=== PATIENT | female | born 1945 | race Caucasian/White ===

== ENCOUNTER 2022-12-12 10:09 | Emergency (ER) | payer MEDICARE, MEDICAID ==
[~2022-12-12] VITALS: Ht 160 cm; Wt 59.1 kg
== END 2022-12-12 11:36 | disposition home or self-care (01) ==
LOC: ER 10:10
DX: S52.592A Other fractures of lower end of left radius, initial encounter for closed fracture (principal); E03.9 Hypothyroidism, unspecified; F32.A Depression, unspecified; W18.39XA Other fall on same level, initial encounter; Y93.E1 Activity, personal bathing and showering; Y92.091 Bathroom in other non-institutional residence as the place of occurrence of the external cause; Y99.8 Other external cause status
CPT/HCPCS: 29125; 73110; 99284; A4565; A6449

== ENCOUNTER 2022-12-13 10:36 | Emergency (ER) | payer MEDICARE, MEDICAID ==
[~2022-12-13] VITALS: Ht 160 cm; Wt 56.0 kg
[2022-12-13 10:56] VITALS: BP 127/77
== END 2022-12-13 11:53 | disposition home or self-care (01) ==
LOC: ER 10:36
DX: S52.592A Other fractures of lower end of left radius, initial encounter for closed fracture (principal); E03.9 Hypothyroidism, unspecified; F32.9 Major depressive disorder, single episode, unspecified; Z79.899 Other long term (current) drug therapy; X58.XXXA Exposure to other specified factors, initial encounter; Y93.89 Activity, other specified; Y92.89 Other specified places as the place of occurrence of the external cause; Y99.8 Other external cause status
CPT/HCPCS: 99283

== ENCOUNTER 2024-10-05 10:05 | Emergency (ER) | payer MEDICARE, MEDICAID ==
[~2024-10-05] VITALS: Ht 160 cm; Wt 52.0 kg
[2024-10-05 11:38] VITALS: TEMP 98.2
[2024-10-05] MEDS ORDERED: CLIN-214 PO (11:58)
[2024-10-05] MEDS: clindamycin 150mg capsule PO ONE (11:59)
[2024-10-05 12:07] VITALS: BP 107/55; PULSE 86; RESP 16; O2SAT 96
== END 2024-10-05 12:10 | disposition home or self-care (01) ==
LOC: ER 10:06
DX: K04.7 Periapical abscess without sinus (principal); E03.9 Hypothyroidism, unspecified; F32.A Depression, unspecified
CPT/HCPCS: 99283